=== PATIENT | male | born 1960 | race Caucasian/White ===

== ENCOUNTER 2023-08-01 10:48 | Day surgery (SDC) | payer BC ==
[~2023-08-01] VITALS: Ht 177.8 cm; Wt 146.9 kg
[~2023-08-01 10:48] MED LIST: ATEN100T PO; GABA-282 PO; LOSA100T46 PO; MELO7.5T35 PO
[2023-08-01] MEDS: NS 1,000 ML IV ONE (12:11)
[2023-08-01] MEDS ORDERED: propofoL 200 MG/20 ML VIAL As Ordered ONE (12:29)
[2023-08-01 13:19] VITALS: TEMP 98.7
[2023-08-01 13:37] VITALS: BP 152/96; O2SAT 96
== END 2023-08-01 13:56 | disposition home or self-care (01) ==
LOC: M OPP 10:48
PROVIDERS: ATTEND Internal Medicine Gastroenterology
DX: Z12.11 Encounter for screening for malignant neoplasm of colon (principal); Z12.12 Encounter for screening for malignant neoplasm of rectum; D12.8 Benign neoplasm of rectum; D12.2 Benign neoplasm of ascending colon; K57.30 Diverticulosis of large intestine without perforation or abscess without bleeding; K64.8 Other hemorrhoids; K64.4 Residual hemorrhoidal skin tags; Z86.010 Personal history of colon polyps; Z90.49 Acquired absence of other specified parts of digestive tract; I10 Essential (primary) hypertension; G47.30 Sleep apnea, unspecified; Z79.899 Other long term (current) drug therapy; Z79.1 Long term (current) use of non-steroidal anti-inflammatories (NSAID)